=== PATIENT | female | born 1990 | race Caucasian/White ===

== ENCOUNTER 2020-01-08 00:48 | Outpatient (CLI) | payer OTHER, SELFPAY ==
[2020-01-08 18:01] LABS: SARS-CoV-2 RNA PCR Negative
== END 2020-01-08 00:49 | disposition home or self-care (01) ==
LOC: ANHCOVIDDT 00:48
PROVIDERS: Visit Provider Obstetrics & Gynecology
DX: Z01.812 Encounter for preprocedural laboratory examination (principal); Z20.828 Contact with and (suspected) exposure to other viral communicable diseases
CPT/HCPCS: 87635; C9803; U0003

== ENCOUNTER 2020-01-10 01:48 | Day surgery (SDC) | payer OTHER, SELFPAY ==
[2019-12-26 10:04] VITALS: BMI 21.7
[2020-01-10] VITALS (7 sets, daily range): BP systolic 105–135; BP diastolic 72–89; PULSE 55–78; RESP 12–16; TEMP 36.1–36.8; O2SAT 100
--- NOTE | 2020-01-10 07:16 | P.HP_ITS ---
H&P: HPI History of Present Illness Date/Time: 01/10/20 07:16 Chief complaint: retained IUD, sterilization Narrative: Carol Alanis is a 29 year old female Presents for removal of IUD and tubal ligation. Has IUD in the uterus unable to remove in office th erefore will be done today. Also desires bilateral salpingectomy as a form of permanent sterilization which we have discussed as indeed permanent and also the risk of regret ectopic and failure rate. Questions have been answered and we will proceed. Review of Systems Review of Systems: All systems reviewed & are unremarkable except as noted in HPI and below PMFSH Social History Social History Smoking status: Former smoker Tobacco type: cigarettes Smoking end date: 04/12/16 Alcohol intake: current Substance use: never Living arrangements: with friend(s) Gender identity (if verbalized by the patient): Female Sexual Orientation (if Verbalized by the Patient): Straight or Heterosexual Spiritual care concerns: No Meds Home Medications and Allergies Home Medications Medication Instructions Recorded Confirmed Type No Home Medications 12/26/19 12/26/19 History Allergies Allergy/AdvReac Type Severity Reaction Status Date / Time No Known Allergies Allergy Unverified 07/27/14 06:27 Exam Const: General: no acute distress Resp: Auscultation: clear to auscultation bilaterally Cardio: Rate: regular rate Rhythm: regular rhythm GI: GI Palp: Yes Soft to palpation Assessment and Plan Assessment and plan (1) Encounter for sterilization: Code(s): Z30.2 - Encounter for sterilization Status: Acute (2) Retained intrauterine contraceptive device (IUD): Code(s): T83.39XA - Other mechanical complication of intrauterine contraceptive device, initial encounter Status: Acute Additional Plan will proceed with hysteroscopic exam and removal of IUD. To be followed by laparoscopic bilateral salpingectomy.
--- NOTE | 2020-01-10 07:19 | WPDHPUPDATE1 ---
History and Physical Update Update Date/Time: 01/10/20 07:19 History and Physical has been reviewed, including an updated exam of the patient. There are NO changes in the patient's condition. Risks, benefits, and alternatives have been discussed and questions answered. Patient agrees to proceed with procedure.
[2020-01-10] MEDS: LACTATED RINGERS 1,000 ML 30 ML IV CONT ×2 (10:35→13:08)
[2020-01-10] MEDS: KETOROLAC 15 MG/ML VIAL (*BKC) IV PUSH (10:38)
[2020-01-10] MEDS: ACETAMINOPHEN 500 MG TABLET 1000 MG PO (10:38)
--- NOTE | 2020-01-10 11:34 | P.PNAN_ITS ---
Anes - Initial Pre Proc Eval Procedure: Operation Date: 01/10/20 12:00 Proposed Procedures p Hysteroscopy, Intra Uterine Device Removal, Laparoscopic Bilateral Salpingectomy - Ander Quick MD Date/Time: 01/10/20 11:34 Surgeon: Ander Quick MD Pre Op Diagnosis: retained IUD, sterilization Patient Data Age: 29 Gender: F Height: 5 ft 6 in Weight: 61.4 kg Last Vital Signs Temp 36.8 C 01/10/20 10:29 Pulse 73 01/10/20 10:29 Resp 16 01/10/20 10:29 BP 105/72 01/10/20 10:29 Pulse Ox 100 01/10/20 10:29 Allergies Allergy/AdvReac Type Severity Reaction Status Date / Time No Known Allergies Allergy Unverified 01/10/20 10:17 Home Medications Medication Instructions Recorded Confirmed Type No Home Medications 12/26/19 01/10/20 History Patient hx anesthesia problems: none Family hx anesthesia problems: none [facility] Past Medical History Medical History (Updated 01/10/20 @ 11:39 by Phan Mahan MD) History of TMJ disorder LeFort I fracture Social History Social History Smoking status: Former smoker Tobacco type: cigarettes Smoking end date: 04/12/16 Alcohol intake: current Substance use: never Living arrangements: with friend(s) Gender identity (if verbalized by the patient): Female Sexual Orientation (if Verbalized by the Patient): Straight or Heterosexual Spiritual care concerns: No Anes - Eval Final PreProcedure Day of Procedure 01/10/20 11:34 Patient weight: normal Heart: regular rate and rhythm Lungs: clear to auscultation Airway: Mallampati scale class II Neurological: alert and oriented Last oral intake: >/= 8 hours ASA classification: II Emergent: no Anesthetic plan: proceed Anesthesia type and monitoring: general ETT and standard monitoring Informed Consent: The patient's anesthetic plan and its attendant risks and benefits were discussed with the patient/family/POA. Questions were solicited and answers provided to the satisfaction of the patient/family/POA.
[2020-01-10] MEDS: ceFAZolin 2 GM/D5W 50 ML 2 GM/50 ML BAG IVPB (12:16)
--- NOTE | 2020-01-10 12:56 | SUR.OPER ---
IUD removed and intact
--- NOTE | 2020-01-10 12:57 | SUR.OPER ---
Ebl=5ml
--- NOTE | 2020-01-10 12:59 | PM.OP ---
Procedure Note - Brief Procedure Note - Brief Date of procedure: 01/10/20 Pre-op diagnosis: retained IUD, sterilization Post-op diagnosis: same Procedure performed: 1. Hysteroscopy with IUD removal 2. Laparoscopic bilateral salpingectomy Description of procedure: Patient prepped and draped in usual manner for this procedure periumbilical incision as well as lower pelvic incisions were made and trocars were placed under direct visualization. Using the Harmonic scalpel both mesial salpinx were cauterized and cut and tubes were removed without difficulty. There was also [id number] of on serosanguineous fluid in the cul-de-sac which was irrigated out. Gas was allowed escape of systems approximated using 4 Monocryl and attention was then placed the vaginal area. Cervix dilated to allow the hysteroscope to be placed which did reveal IUD in place which was readily removed with polyp forceps. At this point the procedure was considered terminated. Anesthesia: GETA Surgeon: Ander Quick MD Estimated blood loss (mL): 5 Drains: No Packing: No Pathology: yes Complications: No immediate complications Condition: stable Disposition: PACU Findings: 1. IUD in the endometrial cavity 2. Uterus tubes ovary without abnormality 3. 100cc serosanguineous pelvic fluid in the cul-de-sac
== END 2020-01-10 14:45 | disposition home or self-care (01) ==
PROVIDERS: Visit Provider Obstetrics & Gynecology
PROC: 0UDB8ZZ Extraction of Endometrium, Via Natural or Artificial Opening Endoscopic (ICD-10-PCS; CPT 58558; principal; 2020-01-10 12:00)
DX: Z30.2 Encounter for sterilization (principal); T83.39XA Other mechanical complication of intrauterine contraceptive device, initial encounter; Y84.8 Other medical procedures as the cause of abnormal reaction of the patient, or of later complication, without mention of misadventure at the time of the procedure; Z87.891 Personal history of nicotine dependence
CPT/HCPCS: 58661; 58562; 88302; A9270; J0690; J1100; J1885; J2250; J2370; J2405; J2704; J2710; J3010; J7030; J7120

== ENCOUNTER 2022-10-09 13:22 | Outpatient (CLI) | payer BC, SELFPAY ==
[2022-10-09 14:09] LABS: Hematocrit 40.3 % (37.0-47.0); Hemoglobin 13.4 g/dL (12.0-15.0); Mean Corpuscular HGB Conc 33.3 g/dl (32-36); Mean Corpuscular Hemoglobin 30.5 pg (26-34); Mean Corpuscular Volume 91.6 fl (80-100); Platelet Count Result 292 k/mm3 (150-375); Red Cell Distribution Width 12.8 % (11.5-14.5); White Blood Count 6.8 K/mm3 (4.5-10.0)
== END 2022-10-09 13:23 | disposition home or self-care (01) ==
PROVIDERS: Visit Provider Obstetrics & Gynecology
DX: Z01.818 Encounter for other preprocedural examination (principal); N93.9 Abnormal uterine and vaginal bleeding, unspecified
CPT/HCPCS: 36415; 85027

== ENCOUNTER 2022-10-15 02:18 | Day surgery (SDC) | payer BC, SELFPAY ==
[2022-10-06 14:41] VITALS: BMI 22.0
--- NOTE | 2022-10-06 15:08 | PC.NURSE ---
Report to the Outpatient Waiting Room, entrance under the green pavilion located off [facility], at time _0730_ on date __10/15/22. Planned Procedure Time: _929 . Time changes happen often and if your time is changed the preop area will call you the afternoon before. - You and your visitor will be asked to self-screen and do not enter if you have any COVID symptoms. - A mask is optional within the hospital at this time. Patients may have clear liquids (water, carbonated beverages, clear teas, apple juice) until 3 hours prior to surgery with a maximum of 20 ounces. - No food from midnight until time of surgery - Take the following medications with a SIP of water the morning of surgery: __N/A DO NOT STOP ANY OF YOUR OTHER PRESCRIPTION MEDICATIONS PRIOR TO SURGERY ?EXCEPT THE FOLLOWING Medications to discontinue per physician N/A Date to take last dose___N/A Please no make-up, nail thai, hairspray, perfume, deodorant, or body powder the day of surgery. No jewelry (including any body piercings) or valuables the day of surgery, leave them at home. Please take a shower or bath the night before, or the morning of, surgery with an antibacterial soap. Wear comfortable, loose fitting clothing. Children are encouraged to wear pajamas. - Jewelry must be removed prior to entering the operating room. Rings and piercings that are not removed may be cut off. - The hospital will not accept responsibility for valuables. - Please leave all valuables, including medications, at home the day of surgery. If you are going home after surgery, a licensed transport driver must drive you home. - NO public transportation without another adult if you receive anesthesia. - We recommend that an adult stay with you for 24 hours following discharge. - We also recommend that you do not drive, make important decision, drink alcoholic beverages, or take any drugs that were not prescribed by your health care provider for at least 24 hours after your discharge time. Follow any additional instructions given to you from your surgeon. If you or anyone in your household have experienced Covid symptoms in the past week, please notify your surgeon or the nurse liaison at the phone number below for possible testing. Telephone instructions given to __COURTNEY and asked if any additional questions and then verbalized understanding. Patient advised to call surgeon office or pre surgery nurse liaison [phone] if any additional questions.
[2022-10-15 07:42] VITALS: BP 114/79; PULSE 75; RESP 16; TEMP 36.9; O2SAT 100; BMI 21.2
[2022-10-15] MEDS: LACTATED RINGERS 1,000 ML 30 ML IV CONT ×2 (08:00→10:17)
[2022-10-15] MEDS: ACETAMINOPHEN 500 MG TABLET 1000 MG PO (08:04)
--- NOTE | 2022-10-15 08:46 | WPDHPUPDATE1 ---
History and Physical Update Update Date/Time: 10/15/22 08:46 History and Physical has been reviewed, including an updated exam of the patient. There are NO changes in the patient's condition. Risks, benefits, and alternatives have been discussed and questions answered. Patient agrees to proceed with procedure. Plan: 1. Hysteroscopy with uterine curettings 2. Endometrial ablation 3. LEEP conization
--- NOTE | 2022-10-15 09:29 | WPDANESEPPF ---
Anes - Initial Pre Proc Eval Procedure: Operation Date: 10/15/22 09:30 Proposed Procedures p Hysteroscopy Dilation and Curettage, Leonor Endometrial Ablation - Ander Quick MD s Loop Electrical Excision Procedure - Ander Quick MD Date/Time: 10/15/22 09:29 Surgeon: Ander Quick MD Pre Op Diagnosis: abnormal uterine bleeding, cervical dysplasia Patient Data Age: 32 Gender: F Height: 1.68 m Weight: 59.75 kg Last Vital Signs Temp 98.4 F 10/15/22 07:42 Pulse 75 10/15/22 07:42 Resp 16 10/15/22 07:42 BP 114/79 10/15/22 07:42 Pulse Ox 100 10/15/22 07:42 O2 Del Method Room Air 10/15/22 07:42 Allergies Allergy/AdvReac Type Severity Reaction Status Date / Time No Known Allergies Allergy Verified 10/15/22 08:07 Home Medications Medication Instructions Recorded Confirmed Type No Home Medications 12/26/19 10/06/22 History Patient hx anesthesia problems: none Family hx anesthesia problems: none Results Review: All pre-operative results and documents have been reviewed as part of the pre-operative evaluation. 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) LeFort I fracture Ovarian cyst (~2011) Surgical History Surgical History History of bilateral salpingectomy (01/10/20) hscope IUD removal/lscope bilateral salpingectomy--retained IUD, undesired fertility History of colposcopy with cervical biopsy 03/26/08 benign 12/27/19 benign Family History Family History Mother Hypertension Father Lung cancer Social History Social History Smoking packs per day: 0.5 Smoking cigarettes per day: 10.0 Years smoked: 5 Smoking pack-years: 2.50 Smoking status: Light tobacco smoker Tobacco type: cigarettes and e-cigarettes/vaping Smoking end date: 04/12/16 Additional smoking assessment comments: SMOKED 0.5PPD X5 YRS; THEN SWITCHED TO VAPES X 3YRS AGO Alcohol intake: current Drinks per week: 4 Substance use: never Substance use type: does not use Lack of Transportation: No Lack of Food: Never True Current Housing: I Have Housing Concerned About Future Housing: No Difficulty Paying Gas/Electric Bills: No Difficulty Paying for Meds: No Currently Unemployed: No Education: Bachelor's Degree Difficulty w/ Childcare or Family Care: No Living arrangements: with family Additional living arrangements comments: Occupation/Education: unemployed Gender identity (if verbalized by the patient): Female Sexual Orientation (if Verbalized by the Patient): Straight or Heterosexual Spiritual care concerns: No Anes - Eval Final PreProcedure Day of Procedure 10/15/22 09:29 Patient weight: normal Heart: regular rate and rhythm Lungs: clear to auscultation Airway: Mallampati scale class II Neurological: alert and oriented Last oral intake: >/= 8 hours ASA classification: II Emergent: no Anesthetic plan: proceed Anesthesia type and monitoring: general GIVS and standard monitoring Results Review: All pre-operative results and documents have been reviewed as part of the pre-operative evaluation. Informed Consent: The patient's anesthetic plan and its attendant risks and benefits were discussed with the patient/family/POA. Questions were solicited and answers provided to the satisfaction of the patient/family/POA.
[2022-10-15] MEDS: ceFAZolin 2 GM/D5W 50 ML 2 GM/50 ML BAG IVPB (09:35)
[2022-10-15] MEDS: LIDOCAINE HCL 1% LOCAL INJ 10 ML VIAL INFILTRATE (09:53)
[2022-10-15] MEDS: FERRIC SUBSULFATE 8 ML SOLUTION WITH APPLICATOR TOPICAL (10:13)
--- NOTE | 2022-10-15 10:14 | W.PM.PROC2 ---
Procedure Note - Detailed Date of Procedure 10/15/22 Pre-op Diagnosis abnormal uterine bleeding Post-op Diagnosis Same Procedure Performed 1. Hysteroscopy with uterine curettings 2. Endometrial ablation 3. LEEP conization Surgeon Ander Quick MD Anesthesia MAC and Local Findings 1. Hysteroscopic exam revealed no abnormalities with slightly thickened tissue 2. Visual exam revealed no cervical abnormalities Description of Procedure Patient prepped draped usual manner for this procedure. First hysteroscopic exam was performed which revealed moderately thickened tissue but no specific abnormalities. Curettings were obtained and the endometrial ablation instrument was placed, cavity assessment was performed and after 2 cycles the ablation was complete. Appropriately sized LEEP instrument was obtained to remove the ectocervix and this was done without difficulty. Cautery and Monsel's solution were used to render the cervix hemostatic. Patient was then sent to recovery room in stable condition. Estimated Blood Loss 50 Drains No Packing No Pathology Yes Complications No immediate complications Condition Stable Disposition PACU [facility] Billing Surgery - Charge Forward: Surgery Billing
[2022-10-15 10:17] VITALS: BP 100/65; PULSE 66; RESP 16; O2SAT 100
[2022-10-15] MEDS: fentaNYL CITRATE INJ (*CRX) 100 MCG/2 ML VIAL 25 MCG IV PUSH (10:26)
[2022-10-15 10:30] VITALS: BP 99/69; PULSE 51; RESP 15; O2SAT 99
[2022-10-15] MEDS: oxyCODONE HCL (*CRX) 5 MG TAB IR PO (10:49)
[2022-10-15 11:00] VITALS: BP 120/76; PULSE 57; RESP 16
[2022-10-15 11:30] VITALS: BP 110/67; PULSE 58; RESP 16
[2022-10-15 11:50] VITALS: BP 113/68; PULSE 58; RESP 16
== END 2022-10-15 11:51 | disposition home or self-care (01) ==
PROVIDERS: Visit Provider Obstetrics & Gynecology
PROC: 0U5B8ZZ Destruction of Endometrium, Via Natural or Artificial Opening Endoscopic (ICD-10-PCS; CPT 58563; principal; 2022-10-15 09:30)
PROC: 0UBC7ZZ Excision of Cervix, Via Natural or Artificial Opening (ICD-10-PCS; CPT 57522; 2022-10-15 09:30)
DX: N93.9 Abnormal uterine and vaginal bleeding, unspecified (principal); F17.290 Nicotine dependence, other tobacco product, uncomplicated
CPT/HCPCS: 58563; 57522; 88305; 88307; A9270; J0690; J2250; J2704; J3010; J7120